=== PATIENT | male | born 1970 | race Caucasian/White ===

== ENCOUNTER 2018-12-22 20:20 | Emergency (ER) | payer BC ==
[~2018-12-22] VITALS: Ht 165.1 cm; Wt 110.0 kg
[2018-12-22 20:27] VITALS: BP 121/77
--- NOTE | 2018-12-22 20:36 | NUR ---
LOVE. REPORT RECEIVED FROM EMS. TRANSFFERED FROM [facility]. PT WAS SI LAST NIGHT D/T ETOH. DENIES SI/HI NOW. PT'S AOX4. RESPS EVEN AND UNLABORED. EDMD AT BEDSIDE TO EVALUATE NOW.
--- NOTE | 2018-12-22 20:59 | NUR ---
Patient given discharge instructions and they have confirmed that they understand the instructions. Patient ambulatory with steady gait.
== END 2018-12-22 21:00 | disposition home or self-care (01) ==
LOC: ED 20:55
DX: F32.9 Major depressive disorder, single episode, unspecified (principal); F41.1 Generalized anxiety disorder; J45.909 Unspecified asthma, uncomplicated; F17.200 Nicotine dependence, unspecified, uncomplicated
CPT/HCPCS: 99284